=== PATIENT | male | born 1960 | race Caucasian/White ===

== ENCOUNTER 2021-05-10 04:25 | Day surgery (SDC) | payer OTHER ==
[2021-05-04 17:19] VITALS: BMI 26.6
[2021-05-10] MEDS ORDERED: MIDAZOLAM HCL 2 MG/2 ML SINGLE DOSE VIAL ONE (13:24)
[2021-05-10 16:02] VITALS: BP 102/65; PULSE 78; TEMP 97.8
== END 2021-05-10 14:50 | disposition home or self-care (01) ==
LOC: JASU-SURG 04:25
PROVIDERS: ATTEND Urology
PROC: 0TF4XZZ Fragmentation in Left Kidney Pelvis, External Approach (ICD-10-PCS; principal; 2021-05-10 12:30)
DX: N20.0 Calculus of kidney (principal)